=== PATIENT | male | born 1990 | race Caucasian/White ===

== ENCOUNTER → 2021-09-09 13:29 | Outpatient (CLI) | payer OTHER, SELFPAY | PROVIDERS: Visit Provider Nurse Practitioner | DX: U07.1 COVID-19 (principal) | CPT/HCPCS: C9803; U0003; U0005 ==

== ENCOUNTER 2023-06-14 13:44 | Emergency (ER) | payer OTHER, SELFPAY ==
--- NOTE | 2023-06-14 13:42 | ECG_ITS ---
APPROVED REPORT Exam: Resting ECG HR:76 bpm ECG Measurements Heart Rate 76 AXES ND 176 P 70 QRSd 104 QRS 67 QT 357 T 70 QTc 387 Conclusion SINUS RHYTHM WITH SINUS ARRHYTHMIA POSSIBLE RIGHT VENTRICULAR CONDUCTION DELAY [RSR (QR) IN V1/V2] BORDERLINE ECG UNCONFIRMED REPORT Electronically signed by : Mikey Zhang MD 06/14/2023 17:05:09
[2023-06-14 13:44] VITALS: BP 160/97; PULSE 83; RESP 18; TEMP 36.7; O2SAT 98; BMI 24.0
[2023-06-14 14:00] VITALS: BP 124/73; PULSE 92; RESP 18; O2SAT 97
--- NOTE | 2023-06-14 14:05 | PC.NURSE ---
DR ARNOLD AT BEDSIDE
[2023-06-14 14:23] LABS: Basophils % 0.5 % (0.1-2.0); Eosinophils # 0.1 K/mm3 (0.0-0.4); Eosinophils % 0.9 % (0.1-12.0); Hematocrit 48.1 % (42.0-52.0); Hemoglobin 15.4 g/dL (14.1-18.0); Lymphocytes # 1.8 K/mm3 (0.7-4.5); Mean Corpuscular Hemoglobin 28.1 pg (27.0-31.2); Mean Corpuscular Volume 87.9 fl (80-94); Mean Platelet Volume 8.2 fl (7.4-10.4); Monocytes # 0.3 K/mm3 (0.1-1.0); Monocytes % 5.4 % (1.7-9.3); Neutrophils % 64.1 % (37.0-80.0); Platelet Count 260 K/mm3 (142-424); Red Blood Count 5.48 M/mm3 (4.60-6.20); Red Cell Distribution Width 12.2 % (11.5-17.5); White Blood Count 6.2 K/mm3 (4.8-10.8)
[2023-06-14 14:30] VITALS: BP 136/92; PULSE 82; RESP 16; O2SAT 98
--- NOTE | 2023-06-14 14:31 | [facility].EDGENADL ---
Discharge Plan Disposition Patient Disposition: Home, Self-Care Prescriptions Prescriptions: No Action No Known Home Medications Activity Restrictions/Add. Instructions Additional Instructions/Restrictions: Call your family doctor to establish care for this visit to the emergency department and schedule follow-up within 48 hours to ensure improvement. If you have any worsening of your condition or any other concerning signs or symptoms, return to the emergency department or your primary care doctor for further evaluation. Clinical Impressions Clinical Impression: Chest pain Discharge ED Provider: Sd Awan General Adult HPI General Chief complaint: Chest Pain Stated complaint: CHEST PAIN Time Seen by Provider: 06/14/23 13:50 Mode of Arrival: Ambulatory Source of Information: Patient Limitations: No Limitations Description of Symptoms (Recalled from ER Triage Doc. by RN): PT REPORTS LEFT SIDED CHEST PAIN X 2 DAYS. NO PAIN AT THIS TIME. SHARP PAIN EARLIER TODAY WHILE TALKING AND WORSE WITH TAKING A DEEP BREATH. PT DENIES N/V History of Present Illness HPI narrative: 32-year-old male with history of negative stress test a couple of years ago presenting with chest pain. Patient states that chest pain started 6 days prior to arrival. Got acutely worse today. Patient states that he thinks it may have been related to heart physical work that he was doing outside cutting grass, working in the yard, etc. He states that his chest just has not felt right for the past few days. Denies cough, shortness of breath, but intermittently has sharp pain that starts in his left side of his chest, does not radiate. No fevers or chills, nausea or vomiting. Had this pain in the past, but self remitted. Not currently having symptoms, but given concern for chest pain, wanted to come to the ER for further evaluation. Related Data Home Medications Medication Instructions Recorded Confirmed No Known Home Medications 06/14/23 06/14/23 Allergies Allergy/AdvReac Type Severity Reaction Status Date / Time acetaminophen [From Lortab] Allergy Verified 06/14/23 13:51 hydrocodone [From Lortab] Allergy Verified 06/14/23 13:51 Pertussis Vaccines Allergy Verified 06/14/23 13:51 [facility] Disclaimer: The information contained in this section may have been updated after the patient was seen, as this information can be updated by other users. Social History Smoking Status: Never smoker alcohol intake: never current occupational status: employed Travel in the last 8 weeks: None ROS Obtained: Yes All systems reviewed & no additional complaints except as documented Physical Exam General General appearance: alert and in no apparent distress Head Head exam: atraumatic and normocephalic Eye Eye exam: Present normal appearance, PERRL and EOMI ENT ENT exam: Present mucous membranes moist Neck Neck exam: Present normal inspection, full ROM and trachea midline Respiratory Respiratory exam: Present normal lung sounds bilaterally; Absent respiratory distress, wheezes, stridor, accessory muscle use or prolonged expiratory phase Cardiovascular Cardiovascular exam: Present regular rate and normal rhythm Abdominal Exam Abdominal exam: Present soft; Absent distention, tenderness, guarding, rebound, rigidity or normal bowel sounds Extremities Exam Extremities exam: Absent edema Neurological Exam Neurological exam: Present alert, oriented X3, CN II-XII intact and normal gait; Absent motor sensory deficit Skin Skin exam: Present warm and dry; Absent diaphoresis or erythema Medical Decision Making Medical Records Medical records reviewed: Yes I reviewed the patient's medical records. Rajinder Inquiry Pt receiving controlled substance: No Rajinder was queried for this patient: No Vital Signs: 06/14/23 13:44 06/14/23 14:00 06/14/23 14:30 Temperature 98.0 F Temperature Source Oral Pulse Rate 92 H 82 Pulse
[2023-06-14 14:32] LABS: Alanine Aminotransferase 31 U/L (12-78); Albumin Level 4.6 g/dl (3.5-5.0); Albumin/Globulin Ratio 1.4 (1.1-1.8); Alkaline Phosphatase 72 U/L (38-126); Anion Gap 12.2 mEq/L (5-15); Aspartate Amino Transferase 39 U/L (17-59); Bilirubin,Total 0.7 mg/dl (0.2-1.3); Blood Urea Nitrogen 14 mg/dl (9-20); Calcium 9.4 mg/dl (8.4-10.2); Carbon Dioxide 33 mmol/L (22.0-30.0); Chloride 100 mmol/L (98-107); Creatinine Clearance Estimated 93 mL/min (50-200); Estimated Glomerular Filt Rate 86 ml/min (>60); GFR (African American) 103 ML/MIN (>60); Globulin 3.2 g/dL (1.3-3.2); Glucose 101 mg/dl (74-100); Lipase 105 U/L (23-300); Potassium 4.2 mmoL/L (3.5-5.1); Sodium 141 mmol/L (136-145); Total Protein,Serum 7.8 g/dl (6.3-8.2)
[2023-06-14 14:54] LABS: Troponin I < 0.01 ng/ml (0.00-0.034)
[2023-06-14 15:00] VITALS: BP 134/88; PULSE 83; RESP 16; O2SAT 98
[2023-06-14 15:25] VITALS: BP 134/88; PULSE 72; RESP 17; TEMP 36.8; O2SAT 97
== END 2023-06-14 15:34 | disposition home or self-care (01) ==
PROVIDERS: Emergency Provider Emergency Medicine; PCP Family Medicine
DX: R07.9 Chest pain, unspecified (principal)
CPT/HCPCS: 80053; 83690; 84484; 85025; 93005; 99285